=== PATIENT | female | born 1945 | race American Indian/Alaskan Native ===

== ENCOUNTER 2025-01-03 03:48 | Observation (INO) | payer MEDICARE, BC, SELFPAY ==
[2025-01-02 17:26] VITALS: BP 105/70
[2025-01-02 17:58] LABS: % Basophils 0.5 % (0-2); % Eosinophils 2.4 % (0-6); % Immature Granulocytes 0.5 % (0-0.5); % Lymphocytes 19.2 % (20.5-51.1); % Monocytes 8.8 % (1.7-9.3); % Neutrophils 68.6 % (42.2-75.2); Absolute Basophils 0.1 10^3/uL (0-0.2); Absolute Eosinophils 0.3 10^3/uL (0-0.7); Absolute Immature Granulocytes 0.1 10^3/uL (0-0.05); Absolute Lymphocytes 2.1 10^3/uL (1.2-3.4); Absolute Neutrophils 7.5 10^3/uL (1.4-6.5); Hematocrit 33.2 % (37.0-47.0); Mean Corp Hgb Conc. 33.1 g/dL (33.0-37.0); Mean Corpuscular Hgb 26.9 pg (27.0-31.0); Mean Corpuscular Volume 81.2 fL (81.0-99.0); Mean Platelet Volume 9.2 fL (7.4-10.4); Nucleated Red Blood Cells % 0 %; Platelet Count 479 10^3/uL (130-400); Red Blood Cell Count 4.09 10^6/uL (4.20-5.40)
[2025-01-02 18:24] LABS: ALT (SGPT) 26 U/L (0-35); AST (SGOT) 24 U/L (14-36); Albumin 4.1 g/dl (3.5-5.0); Alkaline Phosphatase 71 U/L (38-126); Blood Urea Nitrogen 20 mg/dl (7-17); Calcium 9.6 mg/dl (8.4-10.2); Glucose 209 mg/dl (70-99); Lipase 461 U/L (23-300); Total Bilirubin 0.2 mg/dl (0.2-1.3); Total Protein 7.1 g/dl (6.3-8.2); Troponin I < 0.012 ng/ml; eGFR > 60.00
[2025-01-02 18:56] LABS: Carbon Dioxide 18 mmol/L (22-30); Chloride 96 mmol/L (98-107); Potassium 4.7 mmol/L (3.5-5.1); Sodium 129 mmol/L (135-145)
[2025-01-02 20:00] VITALS: BP 165/74
[2025-01-02 20:53] VITALS: BP 176/80
--- NOTE | 2025-01-02 21:29 | ED.GENMED ---
History of Present Illness
General
Chief Complaint: Chest Pain
Source: patient
Exam Limitations: none
Time Seen by Provider: 01/02/25 20:43
Nursing documentation reviewed up to this point in time: agreed with
History of Present Illness
History of Present Illness:
Patient presents to ED secondary to worsening lower abdominal pain with nausea sensation over the past 24 hours. Abdominal pain described as pressure/crampy, nonradiating, without any alleviating or exacerbating factors. He does not, patient has
had difficult time with bowel movements. Denies fever or chills. Denies vomiting. Denies trauma. Of note, patient has been evaluated recently for her abdominal pain as well as ongoing vaginal bleeding. CT scan had revealed probable uterine
mass. Patient is scheduled for MRI pelvis in 10 days, as ordered by [facility]/oncologist at [facility]. In addition, as paramedics arrived at patient's house, patient also started complaining of 'crushing chest pain', which now has resolved
spontaneously. Patient does have history of cardiac disease, including stent placement. However, per family, cardiac catheterization in 2022, which was prompted by patient's intermittent chest pain revealed 'abnormal right coronary anomaly', not
amendable to surgery, due to patient's age and risk factors. Patient was prescribed nitroglycerin tablets to be taken, as needed, for future chest pain.
Review of Systems
Review of Systems
Allergies reviewed?: Yes
All Other Systems: ROS reviewed and negative except as documented in HPI and ROS
Constitutional: Reports no symptoms
Respiratory: Denies trouble breathing
Cardiac: Reports chest pain; Denies palpitations
ABD/GI: Reports abdominal pain, nausea and constipated; Denies vomiting or diarrhea
: Reports bleeding
Musculoskeletal: Reports no symptoms
Skin: Reports no symptoms
Neurological: Reports no symptoms; Denies dizzy or weakness
Phy Exam
Physical Exam
Physical Exam:
Physical Exam
General: mild distress, not acutely ill. afebrile
Head: nc/at. eomi
Neck: supple. normal range of motion
Heart: s1/s2 regular rate and rhythm, no murmur. equal radial pulses.
Lungs: no acute respiratory distress. clear bilaterally
Abdomen: normal bowel sounds. no distention. mild lower abdominal tenderness to palpation.
Neuro: alert and oriented. no focal neurological deficits
Skin: no rash
Psychiatric: well kept. interactive and cooperative
Extremities: no edema. no calf tenderness.
Scores
Heart Score for Chest Pain Patients
STEMI patient?: Not applicable
Course
Orders/Labs/Results
Orders:
Orders
01/02/25 17:29
Electrocardiogram (*1) Urgent
Reason for Study: Abdominal Pain
EKG- Treatment ONCE
01/02/25 17:44
Complete Blood Count/With Diff Urgent
Comprehensive Metabolic Panel Urgent
Lipase Urgent
Troponin I Urgent
01/02/25 20:45
CR Chest - 2 Views Urgent
Comment:
Reason For Exam: chest pain
01/02/25 21:18
Iohexol [Omnipaque] See Protocol PO NOW STA
01/02/25 21:19
CT Abd/pel W Iv And Oral Contr Urgent
Comment:
Reason For Exam: lower abdominal pain
01/03/25 01:43
0.9% Sodium Chloride 500 ml [Nss] 500 ml IV BOLUS
01/03/25 01:50
Pantoprazole [Protonix IV] 40 mg IV NOW STA
01/03/25 03:33
Admit/Transfer Patient As Directed
Co-Sign Provider:
Level of Care: Inpatient admission
Assign to:: Telemetry
Physician / Group: Ishmael
Diagnosis: Chest Pain, Hyponatremia
Reason for Telemetry: Chest Pain syndromes
Date to Stop Telemetry: 01/05/25
Time to Stop Telemetry: 11:00
Reason for Hospitalization: Chest Pain, Hyponatremia
Expected length of stay greater than two midnights?: Yes
ELOS- Estimated Length of Stay in days: 2
I certify the patient meets the requirements for IP care: Yes
01/03/25 03:34
PRN Pain Medication Management As Directed
May give lesser potent ordered pain med per pt: Yes
preference::
Protocol:: Medication orders for pain may be administered in a
manner that supports deferring to patient preference
when the pt is:
- Requesting an ordered lesser potent pain medication.
Least to most potent pain medications are defined
as: acetaminophen < NSAID < tramadol < opioids
(morphine, oxycodone, hydromorphone).
- Requesting a lesser dose of the same medication IF
ORDERED.
- Requesting a less intrusive route of administration
if both routes are prescribed by the provider (PO <
IV).
01/03/25 03:35
Code Status As Directed
Resuscitation Status: Full Code
01/03/25 03:52
0.9% Sodium Chloride 1000 ml [Nss] 1,000 ml IV 100 mls/hr
Acetaminophen [Tylenol] 650 mg PO Q4HPRN PRN
Bisacodyl [Dulcolax] 10 mg RECTAL DAILYPRN PRN
Dextrose 50%-Water [Dextrose 50% Syringe] 12.5 grams IV [id number] PRN
Glucagon [GlucaGen] 1 mg IM PRN PRN
Nitroglycerin Sublingual [Nitrostat (Sublingual)] 0.4 mg SL Q5M PRN
Ondansetron Injectable [Zofran] 4 mg IV Q6HPRN PRN
01/03/25 03:52
Activity As Directed
Activity Level: Ambulate
With Assistance
Bedside Glucose Monitoring As Directed
Frequency: AC&HS
Additional Instructions:: Change to q6h if pt on TPN, tube feeding or not eating
EKG with chest pain [ECG as needed] As Directed
ECG as needed for:: Chest Pain
I/O [Intake/ Output] As Directed
Frequency: Per unit guidelines
Pneumatic Compression Sleeves As Directed
Type: Knee high
Vital Signs As Directed
Frequency: Per unit guidelines
Weight As Directed
Frequency: Daily
Oxygen Therapy [O2 Therapy] [RESP] Routine
Titrate/Wean O2 to maintain O2 sat greater than (%): 94
DX Deep Vein Thrombosis Video Routine
01/03/25 05:20
Basic Metabolic Panel IN AM
Cardiovascular Evaluation IN AM
Complete Blood Count/No Diff IN AM
Glycohemoglobin (HgbA1c) IN AM
Lipase IN AM
TSH Reflex To Free T4 Routine
Troponin I Q6H
01/03/25 06:00
EKG [Electrocardiogram (*1)] IN AM
Reason for Study: Chest Pain
Clear Liquid
At Your Request: Limited Participation
Levothyroxine [Synthroid] 100 mcg PO DAILY@0600
01/03/25 07:30
Insulin Aspart Corrective Low [Novolog Flexpen-Low Resistance] See Protocol SC AC
01/03/25 08:00
Amlodipine [Norvasc] 10 mg PO DAILY
Aspirin Low Dose EC [Aspir Low (Enteric Coated)] 81 mg PO DAILY
Cetirizine HCl [Zyrtec] 10 mg PO DAILY
Docusate Sodium [Colace] 100 mg PO BID
ISOSORBIDE MONOnitrate ER [Imdur (Extended Release)] 30 mg PO DAILY
Losartan [Cozaar] 100 mg PO DAILY
Metoprolol Xl [Toprol Xl] 50 mg PO DAILY
Montelukast Sodium [Singulair] 10 mg PO DAILY
Pantoprazole [Protonix IV] 40 mg IV DAILY
Polyethylene Glycol Powder [Miralax] 17 grams PO BID
Rosuvastatin Calcium [Crestor] 5 mg PO DAILY
01/03/25 10:25
Troponin I Q6H
01/03/25 10:59
Urine Osmolality Random [Osmolality, Random Urine] Routine
Date Specimen was Collected: 01/03/25
Time Specimen was Collected: 10:56
Urine Sodium Routine
Date Specimen was Collected: 01/03/25
Time Specimen was Collected: 10:56
01/03/25 18:00
Latanoprost [Xalatan Ophthalmic Solution] 1 drop OPHTH QPM
01/03/25 22:00
Sennosides [Senokot] 17.2 mg PO HS
01/05/25 11:00
DC Protocol for Telemetry ONCE
Abnormal Lab Results
01/02/25 01/03/25
17:44 00:59
WBC 11.0 H 10^3/uL
(4.8-10.8)
RBC 4.09 L 10^6/uL
(4.20-5.40)
Hgb 11.0 L g/dL
(12.0-16.0)
Hct 33.2 L %
(37.0-47.0)
MCH 26.9 L pg
(27.0-31.0)
RDW 16.0 H %
(11.5-14.5)
Plt Count 479 H 10^3/uL
(130-400)
Abs Immat Gran (auto) 0.1 H 10^3/uL
(0-0.05)
Absolute Neuts (auto) 7.5 H 10^3/uL
(1.4-6.5)
Absolute Monos (auto) 1.0 H 10^3/uL
(0.1-0.6)
Lymphocytes % 19.2 L %
(20.5-51.1)
Sodium 129 L mmol/L
(135-145)
Chloride 96 L mmol/L
(98-107)
Carbon Dioxide 18 L mmol/L
(22-30)
BUN 20 H mg/dl
(7-17)
Glucose 209 H mg/dl
(70-99)
Lipase 461 H U/L
(23-300)
POC Glucose 146 H mg/dl
(70-99)
01/02/25 17:44
01/02/25 17:44
Vital Signs
Initial and Last Documented VS:
Initial Vital Signs
Temp Pulse Resp BP Pulse Ox
97.8 F 70 18 105/70 98
01/02/25 17:26 01/02/25 17:26 01/02/25 17:26 01/02/25 17:26 01/02/25 17:26
Last Documented Vital Signs
Temp Pulse Resp BP Pulse Ox
97.9 F 84 20 157/79 97
01/03/25 11:06 01/03/25 11:06 01/03/25 11:06 01/03/25 11:06 01/03/25 11:06
*EKG
Interpreted by ED Provider?: Yes
EKG Intrepretation Date: 01/02/25
Heart Rate: 70
Rate: normal
Rhythm: sinus
*Critical Care Note
Total Time (30-74mins, 75-104mins- exclusive of procedures): Not Applicable
ED Attending Note
-
Portions of this chart may have been created with voice recognition software.� Occasional wrong word or��sound alike� substitutions may have occurred due to the inherent limitations of voice recognition software.
Discharge Plan
Departure
Patient Disposition: Admit
Date of Disposition: 01/03/25
Time of Disposition: 01:50
Admit to: Med/Surg
Presentation/result/management discussed w/ accepting MD/DO: Hospitalist
Discharge Problem:
Pancreatitis, Hyponatremia
Interventions
Interventions:
*Risk Screen - Suicide Last Done: 01/02/25 17:26
*General Assessment Last Done: 01/02/25 17:26
*Neglect/Abuse Screening Last Done: 01/02/25 22:52
ED- Fall Risk Assessment Last Done: 01/03/25 08:13
*ED COVID-19 Vaccine History Last Done: 01/02/25 17:26
*Nursing Disposition Last Done: 01/03/25 08:13
ED- Cardiac Assessment Last Done: 01/02/25 22:52
Discharge Date and Time
Discharge Date/Time: 01/03/25 08:14
[2025-01-02] MEDS: OMNIPAQUE 50 ML PO (21:44)
[2025-01-03 01:01] LABS: Glucose - Point of Care 146 mg/dl (70-99)
[2025-01-03] MEDS: PROTONIX IV 40 MG IV ×2 (02:18→07:45)
[2025-01-03] MEDS: NSS 500 IV (02:19)
[2025-01-03 02:36] VITALS: BP 125/96
--- NOTE | 2025-01-03 03:38 | HPS.HSE ---
Family Physician
-
Family Physician: Shiv French
Chief Complaint
-
Chest Pain
History of Present Illness
Patient is a 79y F with PMH significant for ASCVD, hypertension and DM-II who presents to ED complaining of chest pain. Patient states that she has been dealing with lower abdominal discomfort and vaginal bleeding for several months now. She is
followed by [facility] at [place] and has tentative hysterectomy planned after two failed endometrial biopsies. Patient reports more recent issues with decreased appetite, frequent belching, increased heartburn symptoms and constipation. This has lauri
ongoing for about two weeks. Patient has taken multiple constipation aids without relief of her symptoms.
Today she developed substernal chest discomfort which prompted her to call 911. She was brought to the ED for further evaluation and treatment.
Patient received NTG by EMS and she is currently resting comfortably. She denies any further chest pain.
She denies any N/V.
Medical History
Past Medical History
Past Medical History: Reports Other
Additional Past Medical History:
ASCVD
Cerebral Aneurysm
Hypertension
DM-II
CKD III
GERD
Hypothyroidism
Atrial Fibrillation
SSS s/p PPM
Cervical DDD
Dysfunctional Uterine Bleeding / Uterine Cyst
Past Surgical History: Reports Other
Additional Past Surgical History:
PTCA with Stent
Cervical Spine Fusion
Endometrial Biopsy (x 2)
Aneurysm Coil
PPM Placement
Social History
Tobacco: Non-smoker
Alcohol: None
Drug: None
Family History
Family History: Not pertinent
Allergies / Home Medications
Allergies reflects when Allergies were last updated in [employer].
Home Medications with original date entered in [employer]
Allergy/Medication List:
Allergies
Allergy/AdvReac Type Severity Reaction Status Date / Time
No Known Allergies Allergy Verified 01/02/25 17:29
Home Medications
amlodipine 10 mg tablet 10 mg PO DAILY 01/03/25
aspirin 81 mg tablet,delayed release 81 mg PO DAILY 01/03/25
cetirizine 10 mg tablet 10 mg PO DAILY 01/03/25
famotidine 40 mg tablet 40 mg PO DAILY 01/03/25
isosorbide mononitrate 30 mg tablet,extended release 24 hr 30 mg PO DAILY 01/03/25
latanoprost 0.005 % eye drops 1 drp ophthalmic (eye) QPM 01/03/25
levothyroxine 100 mcg tablet 100 mcg PO DAILY 01/03/25
losartan 100 mg tablet 100 mg PO DAILY 01/03/25
melatonin 5 mg tablet 5 mg PO HS PRN insomnia 01/03/25
metformin 500 mg tablet 500 mg PO BID 01/03/25
metoprolol succinate 50 mg tablet,extended release 24 hr 50 mg PO DAILY 01/03/25
montelukast 10 mg tablet 10 mg PO DAILY 01/03/25
multivitamin 1 tab PO DAILY 01/03/25
nitroglycerin 0.4 mg sublingual tablet 0.4 mg sublingual Q5M PRN chest pain 01/03/25
rosuvastatin 5 mg tablet 5 mg PO DAILY 01/03/25
Review of Systems
-
History Source: Patient
A 12 point ROS was completed and negative except as noted: Yes
Constitutional: Denies Fever, Fatigue or Chills
Respiratory: Denies Cough or Trouble Breathing
Cardiac: Denies Chest Pain or Palpitations
Abdomen/GI: Reports Abdominal Pain (lower abdominal pain) and Constipated; Denies Nausea or Vomiting
: Reports Bleeding (vaginal bleeding x months); Denies Dysuria, Frequency or Flank Pain
Musculoskeletal: Denies Joint Pain or Edema
Neurological: Denies Dizzy or Headache
Physical Exam
Vital Signs
Vital Signs
Temp Pulse Resp BP Pulse Ox
97.7 F 71 18 125/96 96
01/02/25 20:00 01/03/25 02:36 01/03/25 02:36 01/03/25 02:36 01/03/25 02:36
Physical Exam
General: Other (79y F in no acute distress.)
HEENT: Moist mucous membranes and PERRLA
Respiratory: Clear; No Wheezes, Rales or Rhonchi
Cardiac: S1/S2 and Regular Rhythm; No Murmur
GI: Other (Abdomen is distended. Pos bowel sounds. Pos tenderness across lower abdomen - no upper abdominal tenderness.)
Musculoskeletal: No Clubbing, No Cyanosis and No Edema
Neuro: AO x 3
Laboratory Results
-
01/02/25 17:44
01/02/25 17:44
Laboratory Results
Total Bilirubin 0.2 mg/dl (0.2-1.3) 01/02/25 17:44
AST 24 U/L (14-36) 01/02/25 17:44
ALT 26 U/L (0-35) 01/02/25 17:44
Alkaline Phosphatase 71 U/L (38-126) 01/02/25 17:44
Troponin I < 0.012 ng/ml 01/02/25 17:44
Lipase 461 U/L (23-300) H 01/02/25 17:44
Impression/Plan
-
A/P: Patient is a 79y F with PMH significant for ASCVD, HTN and DM-II who presents to ED complaining of chest pain.
Chest Pain
- Admit for further evaluation and treatment.
- Initial troponin undetectable - follow x 3 sets total or to peak.
- EKG is A-paced without evident ischemic changes. No prior to compare.
- Monitor for any new / recurrent symptoms.
- Cardiology consult if recurrent symptoms or positive troponin.
- Continue current CV med regimen including ASA, statin, etc.
Hyponatremia
- Suspect hypovolemic hyponatremia with reported decreased PO intake x weeks / months.
- IVFs overnight.
- Check urine studies for confirmation.
- Follow for improvement in AM.
Abdominal Pain
Constipation
GERD
- Not consistent with pancreatitis with no N/V, predominately lower abdominal pain, unremarkable imaging (from that perspective).
- Allow clear liquids for now.
- IVFs as noted above.
- Intensify bowel regimen and follow for positive results.
- PPI daily and continue famotidine.
- Repeat lipase in the AM. Follow for any new / worsening symptoms.
Benign Hypertension
- Stable. Continue outpatient medications with holding parameters.
DM-II
- Stable. Hold PO medications.
- Follow glucose and cover with SSI as needed.
- Update A1C.
Hypothyroidism
- Stable. Continue T4 supplementation.
CKD III
- Likely stable with currently normal SCr.
- Follow for changes with IVFs.
Uterine Cyst
DUB
Chronic Blood Loss Anemia
- Stable. Hgb = 11 not significantly changed per patient recall.
- Has been evaluated extensively at [facility] and has upcoming / further evaluation scheduled there.
- Monitor for any acute increase in blood loss, abdominal pain, etc.
- Otherwise, follow-up with Dr. Edwards at [facility] as planned.
DVT Prophylaxis: SCDs
Code Status: Full
[2025-01-03 04:06] VITALS: BP 132/65
[2025-01-03] MEDS: NSS 1000 IV (04:12)
[2025-01-03 04:26] VITALS: BMI 33.0
[2025-01-03 05:36] LABS: Hematocrit 37.4 % (37.0-47.0); Hemoglobin 12.1 g/dL (12.0-16.0); Mean Corp Hgb Conc. 32.4 g/dL (33.0-37.0); Mean Corpuscular Hgb 26.5 pg (27.0-31.0); Mean Platelet Volume 9.3 fL (7.4-10.4); Platelet Count 480 10^3/uL (130-400); Red Blood Cell Count 4.56 10^6/uL (4.20-5.40); Red Cell Dist. Width 16.1 % (11.5-14.5); White Blood Cell Count 12.3 10^3/uL (4.8-10.8)
[2025-01-03 05:49] LABS: Blood Urea Nitrogen 14 mg/dl (7-17); Carbon Dioxide 21 mmol/L (22-30); Chloride 102 mmol/L (98-107); Estimated Creatinine Clearance 42 ml/min; Glucose 134 mg/dl (70-99); HDL Cholesterol 84 mg/dl; LDL Cholesterol, Calculated 87 mg/dl; Lipase 482 U/L (23-300); Potassium 4.7 mmol/L (3.5-5.1); Sodium 135 mmol/L (135-145); Total Cholesterol 194 mg/dl (50-199); Triglyceride 117 mg/dl (10-149); Very Low Density Lipoprotein 23 mg/dl (0-30); eGFR > 60.00
[2025-01-03 06:00] LABS: Troponin I < 0.012 ng/ml
[2025-01-03 06:18] LABS: TSH Reflex To Free T4 2.13 uIU/ml (0.47-4.68)
[2025-01-03] MEDS: NORVASC 10 MG PO (07:45)
[2025-01-03] MEDS: ASPIR LOW (ENTERIC COATED) 81 MG PO (07:45)
[2025-01-03] MEDS: PEPCID 20 MG PO (07:45)
[2025-01-03] MEDS: NSS (PRESERVATIVE FREE) 10 ML IV (07:45)
[2025-01-03] MEDS: COZAAR 100 MG PO (07:46)
[2025-01-03] MEDS: TOPROL XL 50 MG PO (07:46)
[2025-01-03] MEDS: CRESTOR 5 MG PO (07:46)
[2025-01-03] MEDS: SINGULAIR 10 MG PO (07:46)
[2025-01-03] MEDS: COLACE 100 MG PO (07:46)
[2025-01-03] MEDS: SYNTHROID 100 MCG PO (07:46)
[2025-01-03 08:55] LABS: Glycohemoglobin (HgbA1c) 7.3 % (4.0-5.6)
[2025-01-03 09:17] VITALS: BP 187/88
[2025-01-03 09:18] VITALS: BMI 29.3
[2025-01-03] MEDS: IMDUR (EXTENDED RELEASE) 30 MG PO (09:31)
[2025-01-03] MEDS: ZYRTEC 10 MG PO (09:31)
--- NOTE | 2025-01-03 10:34 | W.DS.TRANS ---
DC Summary - [employer]
-
Discharge Instructions:
Discharge Diagnosis/Procedures Abdominal pain
Dehydration with hyponatremia.
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
Instructions:
Stand-Alone Forms:
Changes to Home Medications: Yes
Discharge Medications:
DC Medications w/original date entered in [employer]
amlodipine 10 mg tablet 10 mg PO DAILY 01/03/25
aspirin 81 mg tablet,delayed release 81 mg PO DAILY 01/03/25
cetirizine 10 mg tablet 10 mg PO DAILY 01/03/25
famotidine 40 mg tablet 40 mg PO DAILY 01/03/25
isosorbide mononitrate 30 mg tablet,extended release 24 hr 30 mg PO DAILY 01/03/25
latanoprost 0.005 % eye drops 1 drp ophthalmic (eye) QPM 01/03/25
levothyroxine 100 mcg tablet 100 mcg PO DAILY 01/03/25
losartan 100 mg tablet 100 mg PO DAILY 01/03/25
melatonin 5 mg tablet 5 mg PO HS PRN insomnia 01/03/25
metformin 500 mg tablet 500 mg PO BID 01/03/25
metoprolol succinate 50 mg tablet,extended release 24 hr 50 mg PO DAILY 01/03/25
montelukast 10 mg tablet 10 mg PO DAILY 01/03/25
multivitamin 1 tab PO DAILY 01/03/25
nitroglycerin 0.4 mg sublingual tablet 0.4 mg sublingual Q5M PRN chest pain 01/03/25
rosuvastatin 5 mg tablet 5 mg PO DAILY 01/03/25
tramadol 50 mg tablet 25 mg (1/2 x 50 mg) PO Q6HPRN PRN severe pain #30 tabs 01/03/25
Home Medication Changes
Ultram added for moderate to severe pelvic pain
Pending Results: No
[2025-01-03] MEDS: ULTRAM 25 MG PO (10:49)
[2025-01-03 11:01] LABS: Troponin I < 0.012 ng/ml
[2025-01-03 11:06] VITALS: BP 157/79
--- NOTE | 2025-01-03 12:11 | CM ---
Pt was d/c out of room before CM could meet. CM spoke w/ pt's son, Dario for initial assessment information
Pt lives alone in a 1st fl[address] condo- no steps. Pt is independent w/ the use of a cane for ambulation.
Denies SNF/VN/PT hx.
Address, points of contact and insurance verified. Correct address is [address] [place] [id number]. Address listed on face sheet is an old address.
PCP: Dr. French
Pharmacy: [facility]
Plan: Home; no needs
[2025-01-03 13:05] LABS: Osmolality Urine 279 mOsm/kg (300-900)
[2025-01-03 13:19] LABS: Urine Sodium 105 mmol/L (30-90)
== END 2025-01-03 12:07 | disposition home or self-care (01) ==
LOC: 4 WEST ACU 03:48
PROVIDERS: Student in an Organized Health Care Education/Training Program; ADMITTING PHYSICIAN Hospitalist; ATTENDING PHYSICIAN Internal Medicine; EMERGENCY PHYSICIAN Emergency Medicine; FAMILY PHYSICIAN Family Medicine
DX: R07.89 Other chest pain (principal); E87.1 Hypo-osmolality and hyponatremia; K59.00 Constipation, unspecified; K21.9 Gastro-esophageal reflux disease without esophagitis; R10.2 Pelvic and perineal pain; R10.9 Unspecified abdominal pain; I12.9 Hypertensive chronic kidney disease with stage 1 through stage 4 chronic kidney disease, or unspecified chronic kidney disease; E11.22 Type 2 diabetes mellitus with diabetic chronic kidney disease; E03.9 Hypothyroidism, unspecified; N18.30 Chronic kidney disease, stage 3 unspecified; D50.0 Iron deficiency anemia secondary to blood loss (chronic); N85.8 Other specified noninflammatory disorders of uterus; Z79.82 Long term (current) use of aspirin; Z79.899 Other long term (current) drug therapy
CPT/HCPCS: 71046; 74177; 80048; 80053; 80061; 82962; 83036; 83690; 83935; 84300; 84443; 84484; 85025; 85027; 93005; G0378; Q9967

== ENCOUNTER → 2025-09-27 13:41 | Outpatient (REF) | payer MEDICARE, BC, SELFPAY | LOC: HWRAD 13:41 | PROVIDERS: ATTENDING PHYSICIAN Family Medicine | DX: M25.552 Pain in left hip (principal) | CPT/HCPCS: 72110; 73502 ==